=== PATIENT | female | born 1965 | race Caucasian/White ===

== ENCOUNTER → 2016-11-27 | Outpatient (CLI) | payer BC ==
--- NOTE | 2016-11-28 08:25 | MM ---
Reason for exam: screening (asymptomatic). Last mammogram was performed 1 year and 1 month ago. History: Cancelled Right US Needle Biopsy of the right breast, March 06, 2007. Benign US left guided mammotome of the left breast, April 17, 2006. Took hormonal contraceptives for 10 years beginning at age 22. Physical Findings: A clinical breast exam by your physician is recommended on an annual basis and results should be correlated with mammographic findings. MG 3D Screening Mammo W/Cad Bilateral CC and MLO view(s) were taken. Prior study comparison: October 25, 2015, bilateral MG screening mammo w CAD. July 09, 2014, bilateral MG screening mammo w CAD. January 09, 2013, CAD bilateral diagnostic mammogram. The breast tissue is heterogeneously dense. This may lower the sensitivity of mammography. Finding: There are a occasional typically benign round calcifications in both breasts. Previous mammotome biopsy in the left breast There is no discrete abnormality. ASSESSMENT: Benign, BI-RAD 2 RECOMMENDATION: Routine screening mammogram of both breasts in 1 year.
== END | disposition home or self-care (01) ==
LOC: RADMAMWWP 07:15
PROVIDERS: ATTEND Obstetrics & Gynecology Obstetrics
DX: Z12.31 Encounter for screening mammogram for malignant neoplasm of breast (principal)
CPT/HCPCS: 77063; G0202

== ENCOUNTER → 2018-02-21 | Outpatient (CLI) | payer BC ==
--- NOTE | 2018-02-27 10:20 | MM ---
Reason for exam: screening (asymptomatic). Last mammogram was performed 1 year and 3 months ago. History: Patient is postmenopausal. Cancelled Right US Needle Biopsy of the right breast, March 06, 2007. Benign US left guided mammotome of the left breast, April 17, 2006. Took hormonal contraceptives for 10 years beginning at age 22. Physical Findings: A clinical breast exam by your physician is recommended on an annual basis and results should be correlated with mammographic findings. MG 3D Screening Mammo W/Cad Bilateral CC and MLO view(s) were taken. Prior study comparison: November 27, 2016, bilateral MG 3d screening mammo w/cad. October 25, 2015, bilateral MG screening mammo w CAD. The breast tissue is heterogeneously dense. This may lower the sensitivity of mammography. There is no discrete abnormality. No significant changes when compared with prior studies. ASSESSMENT: Negative, BI-RAD 1 RECOMMENDATION: Routine screening mammogram of both breasts in 1 year.
== END | disposition home or self-care (01) ==
LOC: RADMAMWWP 07:36
PROVIDERS: ATTEND Obstetrics & Gynecology Obstetrics
DX: Z12.31 Encounter for screening mammogram for malignant neoplasm of breast (principal)
CPT/HCPCS: 77063; 77067

== ENCOUNTER → 2018-09-02 | Outpatient (CLI) | payer BC ==
[2018-09-02 15:23] LABS: Basophils % (A) 0 %; Eosinophils # (A) 0.1 k/uL (0-0.7); Eosinophils % (A) 1 %; HCT 38.9 % (34.0-46.0); HGB 11.8 gm/dL (11.4-16.0); Hypochromasia Slight; Lymphocytes # (A) 4.3 k/uL (1.0-4.8); Lymphocytes % (A) 44 %; MCH 24.8 pg (25.0-35.0); MCHC 30.4 g/dL (31.0-37.0); MCV 81.8 fL (80.0-100.0); Mean Platelet Volume 7.9; Monocytes # (A) 0.5 k/uL (0-1.0); Monocytes % (A) 5 %; Neutrophils # (A) 4.4 k/uL (1.3-7.7); Neutrophils % (A) 46 %; Platelet Count 205 k/uL (150-450); RBC 4.75 m/uL (3.80-5.40); RDW 14.8 % (11.5-15.5); WBC 9.6 k/uL (3.8-10.6)
[2018-09-03 00:05] LABS: African American GFR (CKD) 85.8 (60.0-200.0); Albumin 4.2 g/dL (3.80-4.90); Albumin/Globulin Ratio 1.5 (1.60-3.17); Anion Gap 9.8 mmol/L (4.00-12.00); BUN/Creat Ratio 18.89 Ratio (12.00-20.00); Calcium 9.4 mg/dL (8.7-10.3); Carbon Dioxide 27.2 mmol/L (21.6-31.8); Globulin 2.8 g/dL (1.6-3.3); Potassium 4.6 mmol/L (3.5-5.5); Total Bilirubin 0.4 mg/dL (0.3-1.2)
[2018-09-03 00:14] LABS: T4, Free (Free Thyroxine) 1.2 ng/dL (0.80-1.80)
== END | disposition home or self-care (01) ==
LOC: LABWHC1 14:41
PROVIDERS: ATTEND Internal Medicine
DX: K21.9 Gastro-esophageal reflux disease without esophagitis (principal); G47.62 Sleep related leg cramps
CPT/HCPCS: 36415; 80053; 82306; 83735; 84439; 84443; 85025

== ENCOUNTER → 2019-03-05 | Outpatient (CLI) | payer BC ==
--- NOTE | 2019-03-06 07:14 | MM ---
Reason for exam: additional evaluation requested from prior study. Last mammogram was performed 1 year ago. History: Patient is postmenopausal. Cancelled Right US Needle Biopsy of the right breast, March 06, 2007. Benign US left guided mammotome of the left breast, April 17, 2006. Took hormonal contraceptives for 10 years beginning at age 22. Physical Findings: Nurse did not find any significant physical abnormalities on exam. MG 3D Diag Mammo W/Cad [facility] Bilateral CC and MLO view(s) were taken. Prior study comparison: February 21, 2018, bilateral MG 3d screening mammo w/cad. November 27, 2016, bilateral MG 3d screening mammo w/cad. The breast tissue is heterogeneously dense. This may lower the sensitivity of mammography. Right 5mm lateral oval asymmetry 4cm from nipple and right superior 4mm asymmetry 6.5cm from nipple that is also suspected obscured cysts. These results were verbally communicated with the patient and result sheet given to the patient on 03/05/19. ASSESSMENT: Incomplete: need additional imaging evaluation, BI-RAD 0 RECOMMENDATION: Ultrasound of the right breast.
--- NOTE | 2019-03-06 07:16 | USB ---
Reason for exam: additional evaluation requested from abnormal screening. History: Patient is postmenopausal. Cancelled Right US Needle Biopsy of the right breast, March 06, 2007. Benign US left guided mammotome of the left breast, April 17, 2006. Took hormonal contraceptives for 10 years beginning at age 22. US Breast RT Right complete breast ultrasound includes all four quadrants, the retroareolar region and axilla. Finding demonstrates a 0.9 x 0.5 x 0.7cm benign, oval node at 10 o'clock and a 0.5 x 0.4 x 0.5cm benign, round, smooth, cystic lesion at 12 o'clock. 6 month follow up mammogram recommended. These results were verbally communicated with the patient and result sheet given to the patient on 03/05/19. ASSESSMENT: Probably benign, BI-RAD 3 RECOMMENDATION: Follow-up diagnostic mammogram of the right breast in 6 months.
== END | disposition home or self-care (01) ==
LOC: RADMAMWWP 15:15
PROVIDERS: ATTEND Obstetrics & Gynecology Obstetrics
DX: R92.8 Other abnormal and inconclusive findings on diagnostic imaging of breast (principal)
CPT/HCPCS: 77062; 77066

== ENCOUNTER → 2019-11-06 | Outpatient (CLI) | payer BC ==
--- NOTE | 2019-11-09 09:32 | US ---
EXAMINATION TYPE: US kidneys/renal and bladder DATE OF EXAM: 11/06/2019 COMPARISON: US 06/06/15 CLINICAL HISTORY: 54-year-old female Hematuria R31.9. TECHNIQUE: Multiple sonographic images of the kidneys and bladder are obtained. FINDINGS: EXAM MEASUREMENTS: Right Kidney: 10.4 x 4.6 x 4.1 cm Left Kidney: 10.9 x 5.1 x 4.7 cm Post Void Residual Volume: Not measured, bladder not distended. Kidneys: No hydronephrosis on either side. Bladder: Not distended Bilateral Jets seen: No Normal Post Void Residual: Not calculated. IMPRESSION: 1. No hydronephrosis. 2. Nondiagnostic, collapsed bladder by ultrasound.
== END | disposition home or self-care (01) ==
LOC: RADUSWWP 14:58
PROVIDERS: ATTEND Internal Medicine Geriatric Medicine
DX: N32.89 Other specified disorders of bladder (principal)
CPT/HCPCS: 76770

== ENCOUNTER → 2019-11-24 | Outpatient (CLI) | payer BC ==
--- NOTE | 2019-11-25 08:59 | MM ---
Reason for exam: follow-up at short interval from prior study. Last mammogram was performed 9 months ago. History: Patient is postmenopausal. Cancelled Right US Needle Biopsy of the right breast, March 06, 2007. Benign US left guided mammotome of the left breast, April 17, 2006. Took hormonal contraceptives for 10 years beginning at age 22. Physical Findings: Nurse did not find any significant physical abnormalities on exam. MG 3D Diag Mammo W/Cad RT CC and MLO view(s) were taken of the right breast. Prior study comparison: March 05, 2019, bilateral MG 3d diag mammo w/cad [facility]. February 21, 2018, bilateral MG 3d screening mammo w/cad. The breast tissue is heterogeneously dense. This may lower the sensitivity of mammography. No significant new findings when compared with previous films. These results were verbally communicated with the patient and result sheet given to the patient on 11/24/19. ASSESSMENT: Benign, BI-RAD 2 RECOMMENDATION: Routine screening mammogram of both breasts in 4 months. Back on schedule for March 2020.
== END | disposition home or self-care (01) ==
LOC: RADMAMWWP 14:59
PROVIDERS: ATTEND Obstetrics & Gynecology Obstetrics
DX: R92.8 Other abnormal and inconclusive findings on diagnostic imaging of breast (principal)
CPT/HCPCS: 77061; 77065

== ENCOUNTER → 2020-03-14 | Outpatient (CLI) | payer BC ==
--- NOTE | 2020-03-14 08:26 | CT ---
EXAMINATION TYPE: CT sinus wo con DATE OF EXAM: 03/14/2020 COMPARISON: NONE HISTORY: Chronic sinusitis per order. Headaches and dizziness for months per patient. CT DLP: 667.3 mGycm. Automated Exposure Control for Dose Reduction was Utilized. TECHNIQUE: CT scan of the sinuses is performed without contrast, axial images are obtained, coronal r eformatted images are also reviewed. FINDINGS: The paranasal sinuses including the ethmoid, sphenoid, and maxillary sinuses bilaterally a re well-aerated without abnormal opacification. Hypoplastic or non-formed bilateral frontal sinuses n oted. The ostiomeatal complex is patent bilaterally on coronal image 17. Nasal septum is slightly dev iated to right of midline. Vascular consultation distal internal carotid arteries bilaterally. Visualized portion of mastoid air cells show no abnormal opacification. The globes are intact bilate rally. IMPRESSION: The sinuses are clear and the ostiomeatal complex is patent bilaterally.
== END | disposition home or self-care (01) ==
LOC: RADCTMAIN 07:53
PROVIDERS: ATTEND Otolaryngology
DX: J32.9 Chronic sinusitis, unspecified (principal); J34.1 Cyst and mucocele of nose and nasal sinus
CPT/HCPCS: 70486

== ENCOUNTER → 2020-11-21 | Outpatient (CLI) | payer BC ==
--- NOTE | 2020-11-22 08:46 | MM ---
Reason for exam: screening (asymptomatic). Last mammogram was performed 1 year ago. History: Patient is postmenopausal. Cancelled Right US Needle Biopsy of the right breast, March 06, 2007. Benign US left guided mammotome of the left breast, April 17, 2006. Took hormonal contraceptives for 10 years beginning at age 22. Physical Findings: A clinical breast exam by your physician is recommended on an annual basis and results should be correlated with mammographic findings. MG 3D Screening Mammo W/Cad Bilateral CC and MLO view(s) were taken. Prior study comparison: November 24, 2019, right breast MG 3d diag mammo w/cad RT. March 05, 2019, bilateral MG 3d diag mammo w/cad [facility]. February 21, 2018, bilateral MG 3d screening mammo w/cad. November 27, 2016, bilateral MG 3d screening mammo w/cad. The breast tissue is heterogeneously dense. This may lower the sensitivity of mammography. No significant changes when compared with prior studies. ASSESSMENT: Negative, BI-RAD 1 RECOMMENDATION: Routine screening mammogram of both breasts in 1 year. Patient should continue monthly self breast exams. A negative report should not preclude additional follow up of suspicious palpable abnormalities.
== END | disposition home or self-care (01) ==
LOC: RADMAMWWP 07:44
PROVIDERS: ATTEND Obstetrics & Gynecology Obstetrics
DX: Z12.31 Encounter for screening mammogram for malignant neoplasm of breast (principal); Z78.0 Asymptomatic menopausal state; Z79.3 Long term (current) use of hormonal contraceptives
CPT/HCPCS: 77063; 77067

== ENCOUNTER → 2021-02-08 | Outpatient (CLI) | payer BC ==
[2021-02-08 18:42] LABS: Basophils # (A) 0.04 X 10*3/uL (0.00-0.10); Basophils % (A) 0.5 %; Eosinophils # (A) 0.11 X 10*3/uL (0.04-0.35); Eosinophils % (A) 1.3 %; HCT 40.6 % (37.2-46.3); HGB 12.4 g/dL (12.0-15.0); Lymphocytes # (A) 4.03 X 10*3/uL (0.90-5.00); Lymphocytes % (A) 46.4 %; MCH 25.6 pg (27.0-32.0); MCHC 30.5 g/dL (32.0-37.0); MCV 83.9 fL (80.0-97.0); Monocytes % (A) 6.9 %; Neutrophils # (A) 3.88 X 10*3/uL (1.80-7.70); Neutrophils % (A) 44.7 %; Platelet Count 231 X 10*3/uL (140-440); RBC 4.84 X 10*6/uL (4.10-5.20); RDW 14.6 % (11.5-14.5); WBC 8.68 X 10*3/uL (4.50-10.00)
[2021-02-08 20:48] LABS: ALT 11 U/L (8-44); AST 17 U/L (13-35); African American GFR (CKD) 92.8 (60.0-200.0); Alkaline Phosphatase 98 U/L (41-126); BUN/Creat Ratio 13.03 Ratio (12.00-20.00); Blood Urea Nitrogen 10.8 mg/dL (9.0-27.0); Calcium 8.9 mg/dL (8.7-10.3); Carbon Dioxide 26.7 mmol/L (20.0-27.5); Chloride 102 mmol/L (96-109); Globulin 3.1 g/dL (1.6-3.3); Glucose 100 mg/dL (70-110); LDL Cholesterol,Calculated 111.6 mg/dL (0.0-131.0); Non-African American GFR(CKD) 80.1 (60.0-200.0); Sodium 141 mmol/L (135-145); Total Protein 7.1 g/dL (6.2-8.2)
[2021-02-08 21:17] LABS: Rheumatoid Factor, Qnt <10 IU/mL (0-15)
[2021-02-08 22:24] LABS: Erythrocyte Sedimentation Rate 46 mm/Hr (0-30)
[2021-02-08 22:44] LABS: Anti-DNA, DS unit <1.0 IU/mL; DNA Double-Stranded NEGATIVE (NEGATIVE)
[2021-02-09 12:12] LABS: HLA B27 NEGATIVE
== END | disposition home or self-care (01) ==
LOC: LABWHC1 11:27
PROVIDERS: ATTEND Internal Medicine Geriatric Medicine
DX: E03.9 Hypothyroidism, unspecified (principal); E78.5 Hyperlipidemia, unspecified; M79.10 Myalgia, unspecified site; M19.90 Unspecified osteoarthritis, unspecified site; R79.9 Abnormal finding of blood chemistry, unspecified
CPT/HCPCS: 36415; 80053; 80061; 82306; 83036; 84439; 84443; 85025; 85652; 86140; 86225; 86431; 86812

== ENCOUNTER → 2021-12-29 | Outpatient (CLI) | payer BC ==
--- NOTE | 2022-01-01 08:17 | MM ---
Reason for Exam: Screening (asymptomatic). Last mammogram was performed 1 year(s) and 1 month(s) ago. Patient History: Menarche at age 14. First Full-Term at age 18. Postmenopausal. Hormonal Contraceptives for 10 years from age 22 until age 32. 04/17/2006, Benign Core Biopsy on the left side. 03/06/2007, Cancelled Right US Needle Biopsy on the right side. Risk Values: Marlene 5 year model risk: 1.0%. NCI Lifetime model risk: 7.2%. Prior Study Comparison: 03/05/2019 Bilateral Diagnostic Mammogram, [facility]. 11/24/2019 Right Diagnostic Mammogram, [facility]. 11/21/2020 Bilateral Screening Mammogram, [facility]. Tissue Density: The breast tissue is heterogeneously dense. This may lower the sensitivity of mammography. Findings: Analyzed By CAD. Benign vascular calcifications present. No suspicious groups of microcalcifications, spiculated or lobular masses, architectural distortion or other secondary signs of malignancy are mammographically apparent. Overall Assessment: Benign, BI-RAD 2 Management: Screening Mammogram of both breasts in 1 year. A negative mammogram report should not preclude additional follow up of suspicious palpable abnormalities. Patient should continue monthly self breast exam. A clinical breast exam by your physician is recommended on an annual basis and results should be correlated with mammographic findings. Electronically signed and approved by: Marco Antonio Bauman D.O. Radiologis
== END | disposition home or self-care (01) ==
LOC: RADMAMWWP 08:39
PROVIDERS: ATTEND Obstetrics & Gynecology Obstetrics
DX: Z12.31 Encounter for screening mammogram for malignant neoplasm of breast (principal); Z78.0 Asymptomatic menopausal state
CPT/HCPCS: 77063; 77067

== ENCOUNTER 2022-01-17 11:06 | Day surgery (SDC) | payer BC ==
[2022-01-15 11:24] VITALS: BMI 38.9
[~2022-01-17 11:06] MED LIST: LACTATED RINGERS 1,000 ML IV SCH; LIDOCAINE 1% (10MG/ML) FOR IV START INTRADERMA PRN
[2022-01-17 11:30] VITALS: RESP 18; TEMP 97.3
[2022-01-17] MEDS ORDERED: PROPOFOL 10 MG/ML 20 ML VIAL IV ONE (12:18)
--- NOTE | 2022-01-17 12:38 | P.PCN ---
Date of Procedure: 01/17/22 Procedure(s) Performed: BRIEF HISTORY: Patient is a 56-year-old pleasant female scheduled for an elective colonoscopy as a part of screening for colon cancer and family history of colon cancer. Her mother was diagnosed with colon cancer at age 78. PROCEDURE PERFORMED: Colonoscopy. PREOPERATIVE DIAGNOSIS: Screening for colon cancer and family history of colon cancer.. IV sedation per Anesthesia. PROCEDURE: After informed consent was obtained, the patient, was brought into the endoscopy unit. IV sedation was administered by Anesthesia under continuous monitoring. Digital rectal examination was normal. Initially the Olympus CF-160 flexible video colonoscope was then inserted in the rectum, gradually advanced into the cecum without any difficulty. Careful examination was performed as the scope was gradually being withdrawn. Ileocecal valve and the appendiceal orifice were visualized and appeared normal. Prep was excellent. Mucosa of the cecum, ascending colon, transverse colon, descending colon, sigmoid colon, and rectum appeared normal. Retroflexion was performed in the rectum and no lesions were seen. The patient tolerated the procedure well. IMPRESSION: Normal-appearing colon from rectum to cecum with no evidence of colorectal neoplasia. RECOMMENDATIONS: Findings of this examination were discussed with the patient as well as a family. She was advised to have a repeat colonoscopy in 5 years because of the family history of colon cancer..
[2022-01-17 12:59] VITALS: BP 122/76; PULSE 76
== END 2022-01-17 13:58 | disposition home or self-care (01) ==
LOC: ORWHC2ENDO 11:06
PROVIDERS: ATTEND Internal Medicine Gastroenterology
DX: Z12.11 Encounter for screening for malignant neoplasm of colon (principal); Z80.0 Family history of malignant neoplasm of digestive organs
CPT/HCPCS: 45378; J2704

== ENCOUNTER → 2023-01-09 | Outpatient (CLI) | payer BC ==
--- NOTE | 2023-01-10 08:28 | MM ---
Reason for Exam: Screening (asymptomatic). Last mammogram was performed 1 year(s) and 1 month(s) ago. Patient History: Menarche at age 14. First Full-Term at age 18. Postmenopausal. Hormonal Contraceptives for 10 years from age 22 until age 32. 04/17/2006, Benign Core Biopsy on the left side. 03/06/2007, Cancelled Right US Needle Biopsy on the right side. Risk Values: Marlene 5 year model risk: 1.4%. NCI Lifetime model risk: 7.8%. Prior Study Comparison: 11/24/2019 Right Diagnostic Mammogram, [facility]. 11/21/2020 Bilateral Screening Mammogram, [facility]. 12/29/2021 Bilateral MG 3D screening mammo w/cad, [facility]. Tissue Density: The breast tissue is heterogeneously dense. This may lower the sensitivity of mammography. Findings: Analyzed By CAD. There is no suspicious group of microcalcifications or new suspicious mass. Overall Assessment: Negative, BI-RAD 1 Management: Screening Mammogram of both breasts in [address] [facility] will attempt to contact patient to return for supplemental views and ultrasound if indicated. Patient should continue monthly self-breast exams. A clinical breast exam by your physician is recommended on an annual basis. This exam should not preclude additional follow-up of suspicious palpable abnormalities. Note on Marlene scores and lifetime risk: 1. A Marlene score greater than 3% is considered moderate risk. If this is the case, consider specialist referral to assess eligibility for a risk reducing agent. 2. If overall lifetime risk for the development of breast cancer is 20% or higher, the patient may qualify for future screening with alternating mammogram and breast MRI. Electronically signed and approved by: David Lopez DO
== END | disposition home or self-care (01) ==
LOC: RADMAMWWP 16:53
PROVIDERS: ATTEND Obstetrics & Gynecology Obstetrics
DX: Z12.31 Encounter for screening mammogram for malignant neoplasm of breast (principal); Z78.0 Asymptomatic menopausal state
CPT/HCPCS: 77063; 77067

== ENCOUNTER → 2023-06-21 | Outpatient (CLI) | payer BC ==
--- NOTE | 2023-06-21 08:58 | CT ---
EXAMINATION TYPE: CT sinus wo con CT DLP: 513 mGycm, Automated exposure control for dose reduction was used. DATE OF EXAM: 06/21/2023 8:26 AM COMPARISON: 03/14/2020. 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 Additional coronal and sagittal reformatted images were submitted for evaluation. Contrast used: none Oral contrast used: none FINDINGS: Frontal sinuses: Hypoplastic sinuses bilaterally right greater left. Frontal Recess: Clear Maxillary Sinuses: Normally developed and aerated. Maxillary Infundibula([facility]): Clear, No Ange cells identified. Ethmoid sinuses: Normally developed and aerated. Ethmoidal notch: Protected and abutting the lateral lamina. Sphenoid sinuses: Normally developed and aerated. There is sellar sphenoid sinus pneumatization witho ut evidence of dehiscence. No dehiscence of carotid canal. No evidence of optic nerve dehiscence wit hin the sphenoid sinus. No evidence of Onodi cells. Sphenoethmoidal recesses: Clear. Nasal septum: Minimal S-shaped of the nasal septum more anteriorly. Nasal Turbinates: Equals thickening of the turbinates most pronounced of the inferior turbinates Mastoid air cells & middle ears: The air cells are clear. The middle ears are grossly unremarkable. Modified Soft tissues & Brain: Partially seen without gross abnormality. Globes are intact. Other: Cribriform plate demonstrates symmetric Keros classification type 2 cribriform plate. No evidence of bony dehiscence of skull base. Lamina papyracea is intact without evidence of remote orbital fracture or orbital prolapse into the e thmoid sinus. IMPRESSION: 1. No significant mucosal sinus disease. 2. The ostiomeatal units, frontonasal and sphenoethmoidal recesses are clear.
== END | disposition home or self-care (01) ==
LOC: RADCTMAIN 07:48
PROVIDERS: ATTEND Otolaryngology
DX: J32.9 Chronic sinusitis, unspecified (principal)
CPT/HCPCS: 70486

== ENCOUNTER → 2023-07-19 | Outpatient (CLI) | payer BC ==
[2023-07-19 15:19] LABS: Basophils # (A) 0.04 X 10*3/uL (0.00-0.10); Basophils % (A) 0.6 %; Eosinophils # (A) 0.07 X 10*3/uL (0.04-0.35); Eosinophils % (A) 1.1 %; HCT 40.7 % (37.2-46.3); HGB 12.5 g/dL (12.0-15.0); Lymphocytes # (A) 3.29 X 10*3/uL (0.90-5.00); Lymphocytes % (A) 49.5 %; MCH 26.4 pg (27.0-32.0); MCHC 30.7 g/dL (32.0-37.0); MCV 85.9 FL (80.0-97.0); Monocytes # (A) 0.52 X 10*3/uL (0.20-1.00); Monocytes % (A) 7.8 %; NRBC Per 100 WBC 0 X 10*3/uL (0.00-0.01); Neutrophils % (A) 40.7 %; Platelet Count 201 X 10*3/uL (140-440); RBC 4.74 X 10*6/uL (4.10-5.20); WBC 6.64 X 10*3/uL (4.50-10.00)
[2023-07-19 15:42] LABS: ALT 13 U/L (8-44); AST 16 U/L (13-35); Albumin 4.2 g/dL (3.8-4.9); Alkaline Phosphatase 87 U/L (41-126); Blood Urea Nitrogen 14.4 mg/dL (9.0-27.0); Calcium 9.5 mg/dL (8.7-10.3); Carbon Dioxide 27.2 mmol/L (21.6-31.8); Chloride 104 mmol/L (96-109); Chol/HDL Ratio 3.92 Ratio; Glucose 79 mg/dL (70-110); LDL Cholesterol,Calculated 122.7 mg/dL (0.0-131.0); Potassium 4.2 mmol/L (3.5-5.5); Sodium 140 mmol/L (135-145); T4, Free (Free Thyroxine) 1.29 ng/dL (0.80-1.80); Total Bilirubin 0.6 mg/dL (0.3-1.2); Total Protein 7.2 g/dL (6.2-8.2); VLDL Calculation 15.92 mg/dL (5.00-40.00)
== END | disposition home or self-care (01) ==
LOC: LABWHC1 08:21
PROVIDERS: ATTEND Internal Medicine Geriatric Medicine
DX: K21.9 Gastro-esophageal reflux disease without esophagitis (principal); E11.9 Type 2 diabetes mellitus without complications; E03.9 Hypothyroidism, unspecified
CPT/HCPCS: 36415; 80053; 80061; 83036; 84439; 84443; 85025

== ENCOUNTER → 2023-10-17 | Outpatient (CLI) | payer BC ==
--- NOTE | 2023-11-18 13:08 | XR ---
Patient: Paola Tobias Ordering Physician: Unknown, Unknown ID: [id number] Phone, Pager: Phone: N/ A Pager: N/A : [phone] Age/Gender: 58Y, F Primary Location: N/A Procedure: XR cervical spine com p Study Date: 10/17/2023 8:17:00 AM EXAMINATION TYPE: XR cervical spine comp DATE OF EXAM: 10/27/2023 12:34 PM CLINICAL INDICATION: Of pain COMPARISON: None TECHNIQUE: The cervical spine was imaged in frontal, lateral, odontoid and bilateral oblique. FINDINGS: The osseous structures show normal alignment without evidence of an acute fracture. There are osteoph ytes noted throughout the cervical spine on the anterior and lateral aspects of the vertebral bodies. The intervertebral disk spaces are narrowed at multiple levels. Pedicles are intact. Soft tissues a re within normal limits. The odontoid appears intact. IMPRESSION: 1. No fracture or dislocation. 2. Mild degenerative disc disease changes of the cervical spine.
== END | disposition home or self-care (01) ==
LOC: RADXRMAIN 08:03
PROVIDERS: ATTEND Internal Medicine Geriatric Medicine
DX: M50.30 Other cervical disc degeneration, unspecified cervical region (principal)
CPT/HCPCS: 72050

== ENCOUNTER → 2024-02-19 | Outpatient (CLI) | payer BC ==
--- NOTE | 2024-02-19 09:29 | MM ---
Reason for Exam: Screening (asymptomatic). Last mammogram was performed 1 year(s) and 1 month(s) ago. Patient History: Menarche at age 14. First Full-Term at age 18. Postmenopausal. Hormonal Contraceptives for 10 years from age 22 until age 32. 04/17/2006, Benign Core Biopsy on the left side. 03/06/2007, Cancelled Right US Needle Biopsy on the right side. Paternal grandmother had ovarian cancer. Risk Values: Marlene 5 year model risk: 1.4%. NCI Lifetime model risk: 7.5%. Prior Study Comparison: 11/21/2020 Bilateral Screening Mammogram, [facility]. 12/29/2021 Bilateral MG 3D screening mammo w/cad, [facility]. 01/09/2023 Bilateral MG 3D screening mammo w/cad, [facility]. Tissue Density: The breasts are heterogeneously dense, which may obscure small masses. Findings: Analyzed By CAD. Right breast: There is no suspicious group of microcalcifications or new suspicious mass. Benign-appearing calcifications right breast. Left breast: There is no suspicious group of microcalcifications or new suspicious mass. Benign-appearing calcifications left breast. Overall Assessment: Benign, BI-RAD 2 Management: Screening Mammogram of both breasts in [address] [facility] will attempt to contact patient to return for supplemental views and ultrasound if indicated. Patient should continue monthly self-breast exams. A clinical breast exam by your physician is recommended on an annual basis. This exam should not preclude additional follow-up of suspicious palpable abnormalities. Note on Marlene scores and lifetime risk: 1. A Marlene score greater than 3% is considered moderate risk. If this is the case, consider specialist referral to assess eligibility for a risk reducing agent. 2. If overall lifetime risk for the development of breast cancer is 20% or higher, the patient may qualify for future screening with alternating mammogram and breast MRI. [facility], , 02/19/2024 9:27 AM. Electronically signed and approved by: David Lopez DO
== END | disposition home or self-care (01) ==
LOC: RADMAMWWP 06:58
PROVIDERS: ATTEND Obstetrics & Gynecology Obstetrics
DX: Z12.31 Encounter for screening mammogram for malignant neoplasm of breast (principal); R92.333 Mammographic heterogeneous density, bilateral breasts; Z78.0 Asymptomatic menopausal state; Z80.3 Family history of malignant neoplasm of breast
CPT/HCPCS: 77063; 77067

== ENCOUNTER → 2024-03-05 | Outpatient (CLI) | payer BC ==
--- NOTE | 2024-03-05 12:08 | US ---
EXAMINATION TYPE: US renals and bladder DATE OF EXAM: 03/05/2024 COMPARISON: Renal ultrasound 11/06/2019 CLINICAL INDICATION: Female, 59 years old with history of R52 PAIN, UNSPECIFIED; right flank pain TECHNIQUE: Grayscale imaging of the bilateral kidneys and urinary bladder: FINDINGS: EXAM MEASUREMENTS: Right Kidney: 9.8 x 4.8 x 4.7 cm Left Kidney: 9.6 x 4.7 x 4.1 cm Right Kidney: No hydronephrosis or masses seen Left Kidney: No hydronephrosis or masses seen Bladder: anechoic Bilateral Jets seen: no There is no evidence for hydronephrosis at this point in time. No nephrolithiasis is seen. Cortical medullary differentiation is maintained bilaterally. No masses are identified. The urinary bladder is underdistended and anechoic. IMPRESSION: No hydronephrosis or nephrolithiasis. [facility], , 03/05/2024 12:05 PM
== END | disposition home or self-care (01) ==
LOC: RADUSWWP 08:04
PROVIDERS: ATTEND Physical Medicine & Rehabilitation
DX: R10.9 Unspecified abdominal pain (principal)
CPT/HCPCS: 76770